=== PATIENT | male | born 1940 | race Two or more races ===

== ENCOUNTER 2020-07-15 11:19 | Inpatient (IN) | payer MEDICARE, OTHER ==
[~2020-07-15] VITALS: Ht 157.5 cm; Wt 91.2 kg
[2020-07-15] MEDS ORDERED: CARB1CAP5 PO (13:42)
[2020-07-15] MEDS ORDERED: MAGNESIUM HYDROXIDE 30 ML UDC PO PRN (14:00)
[2020-07-15] MEDS ORDERED: MAG HYDROX/AL HYDROX/SIMETH 30 ML UDC PO PRN (14:00)
[2020-07-15] MEDS ORDERED: ACETAMINOPHEN 325 MG TABLET PO PRN (14:00)
[2020-07-15] MEDS ORDERED: BLOOD SUGAR DIAGNOSTIC 1 EACH STRIP IN ONE (14:00)
[2020-07-15] MEDS ORDERED: SIMV-46 PO (14:26)
[2020-07-15] MEDS ORDERED: BUSP10TA35 PO (14:26)
[2020-07-15] MEDS ORDERED: ASPI-1169 PO (14:26)
[2020-07-15] MEDS ORDERED: MIRT30TA7 PO (14:26)
[2020-07-15 14:45] VITALS: BP 164/79
--- NOTE | 2020-07-15 15:07 | NUR ---
GPS ADMISSION NOTE: RECEIVED PATIENT FROM [facility]. PATIENT ARRIVED ON THIS UNIT AT 1330 VIA AMBULANCE . PATIENT ADMITTED ON A 5150 HOLD FOR DTO, DTS, GD. PER HOLD PATIENT AGITATED THIS MORNING PHYSICALLY VIOLENT WITH HIS AND MOTHER IN LOW. THROWING OBJECTS IN THE HOME. THIS IN SETTING OF DELUSIONAL [id number] PROCESS AND PARANOIA THE 5150 WAS REVIEWED AND THE DOCUMENTATION IN THE 5150 HOLD APPEARS TO REFLECT THE PRESENTATION OF THE PATIENT. UPON FACE TO FACE ASSESSMENT PATIENT IS CURRENTLY LYING IN BED AWAKE, HAS NO S/S OR COMPLAINTS OF PAIN. PATIENT IS DISPLAYING NO S/S OF APPARENT DISTRESS. PATIENT BREATHING IS UNLABORED WITH EQUAL RISE AND FALL OF THE CHEST. PATIENT IS ALERT AND ORIENTATED X 1, CONFUSED,DISORGANIZED, UNCOOPERATIVE, UNKEPT,RESTLESS, DELUSIONAL, DISHEVELED,ON ROOM AIR. PATIENT ASSISTED WITH TURING AND REPOSITIONING Q2HR AND PRN FOR COMFORT AND CIRCULATION. PATIENT IS UNDER THE PSYCHIATRIC CARE OF DR. SPANN AND THE MEDICAL CARE OF PATIENT BELONGINGS WERE INVENTORIED AND CHECKED FOR CONTRABAND. ALL CONTRABAND REMOVED AND STORED IN PATIENT HALLWAY LOCKER. SKIN ASSESSMENT DONE PICTURES PLACED IN THE CHART PATIENT ORIENTATED TO ROOM, FLOOR, AND STAFF WITH ALL QUESTIONS ANSWERED. CALL WONG ON . PATIENT BED SIDE RAILS ARE UP X 2 FOR SAFETY. PATIENT BED IS LOCKED, LOW AND I WILL CONTINUE TO MONITOR THIS PATIENT Q 15 MIN WITH THE HELP OF STAFF TO MAINTAIN SAFETY.
--- NOTE | 2020-07-15 15:28 | NUR ---
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 MADE AWARE TO CALL UNIT/PRIMARY RN FOR MORE INFORMATION OR UPDATE. CN MADE AWARE.
[2020-07-15 16:00] VITALS: BP 139/97
--- NOTE | 2020-07-15 16:58 | NUR ---
GPS RN NOTE: PATIENT REFUSED MRSA SWAB
[2020-07-15] MEDS: SIMVASTATIN 20 MG TABLET PO SCH (18:26)
[2020-07-15] MEDS: RYTARY PO SCH ×2 (18:49→21:27)
[2020-07-15 20:12] VITALS: BP 153/90
[2020-07-15] MEDS ORDERED: MIRTAZAPINE 15 MG TABLET PO SCH (22:00)
[2020-07-16] MEDS: TEMAZEPAM 7.5 MG CAPSULE PO PRN ×2 (00:46→22:18)
--- NOTE | 2020-07-16 00:46 | NUR ---
GPS-RN NOTE: INSOMNIA PATIENT UNABLE TO SLEEP. ADMINISTERED RESTORIL 7.5MG PO ORDERED. WILL CONTINUE TO MONITOR.
[2020-07-16] MEDS: LORAZEPAM 0.5 MG TABLET PO PRN (03:44)
--- NOTE | 2020-07-16 03:45 | NUR ---
NURSES NOTES: PATIENT NOTED TO BE RAMBLING AND TALKING TO SELF. OFFERED HIS ATIVAN 0.5M GPO PRN ORDER. WILL MONITOR EFFICACY OF MEDICATION ON PATIENT. WILL CONTINUE TO MONITOR MOOD AND BEHAVIOR.
[2020-07-16 05:18] VITALS: BP 141/88
[2020-07-16] MEDS: RYTARY PO SCH ×5 (06:14→21:14)
[2020-07-16 07:55] LABS: ALBUMIN 3.7 g/dL (3.4-5.0); BILIRUBIN,TOTAL 0.6 mg/dL (0.2-1.0); CALCIUM, SERUM 8.8 mg/dL (8.5-10.1); CREATININE 0.7 mg/dL (0.6-1.3); POTASSIUM 4.3 mmol/L (3.5-5.1); TOTAL PROTEIN, SERUM 7.6 g/dL (6.4-8.2)
[2020-07-16 07:58] LABS: THYROID STIMULATING HORMONE 2.285 uIU/mL (0.358-3.74)
[2020-07-16 08:00] VITALS: BP 141/78
[2020-07-16] MEDS: ASPIRIN 81 MG TAB.CHEW PO SCH (08:10)
--- NOTE | 2020-07-16 09:00 | NUR ---
RN NOTE- PT IN BED, GARBLED SPEECH DIFFICULT TO UNDERSTAND AND MAKE NEEDS KNOWN. TOOK ASA THIS MORNING SWALLOW EVAL TO BE COMPLETED AT LUNCH. MOVED TO JERO CHAIR. PT IN DAY ROOM WATCHING TV CALM NO BEHAVIORAL ISSUES AT PRESENT
--- NOTE | 2020-07-16 11:46 | NUR ---
FAMILY CONTACT: MAGDA contacted pts daughter Tatiana ([phone]) for collateral information and treatment/discharge planning. MAGDA was unable to leave a voicemail due to mailbox being full.
--- NOTE | 2020-07-16 11:56 | NUR ---
FAMILY CONTACT: MAGDA contacted pts Marla ([phone]) for collateral information, treatment and discharge planning. Per she states she has been pts caregiver for 12 years. She states pt has Parkinson's Disease and states that she believes the medication was too much for him that he became psychotic. She states pt began hallucinating and refusing ti take his medications and became aggressive at home. states that she wishes for pt to return home.
--- NOTE | 2020-07-16 12:12 | NUR ---
INITIAL DISCHARGE PLAN: Per Marla ([phone]) she wishes for pt to return home [address] [place] [address]. SW will help form a safe and proper discharge in collaboration with .
[2020-07-16 16:00] VITALS: BP 118/66
[2020-07-16] MEDS: SIMVASTATIN 20 MG TABLET PO SCH (17:00)
[2020-07-16] MEDS: DIVALPROEX SODIUM 125 MG CAP.SPRINK PO SCH (17:00)
--- NOTE | 2020-07-16 18:00 | NUR ---
RN NOTE- FAMILY CALLED TO SPEAK W PT. PT SET UP ON ZOOM CALL THOUGH IT DIDN'T PROVE EFFECTIVE. PT VERY CONFUSED BY COMPUTER SCREEN AND COULDN'T UNDERSTAND. FAMILY REALLY THINKS PT WOULD DO BETTER AT HOME W THEM. THEY WANT DR SPANN TO CALL THEM TOMORROW AND DISCUSS POSSIBLE DC TO FAMILY CARE. DR SPANN NOTIFIED. SHE STATED SHE WILL CALL FAMILY. WILL PASS ON TO NEXT SHIFT WELL.
[2020-07-16 20:04] VITALS: BP 98/63
[2020-07-16] MEDS: QUETIAPINE FUMARATE 25 MG TABLET PO SCH (21:15)
--- NOTE | 2020-07-16 22:18 | NUR ---
GPS RN NOTE: INSOMNIA PATIENT UNABLE TO SLEEP. ADMINISTERED RESTORIL 7.5 MG PO PRN ORDERED. WILL CONTINUE TO MONITOR FOR SAFETY AND BEHAVIOR.
[2020-07-17 08:00] VITALS: BP 157/94
[2020-07-17] MEDS: RYTARY PO SCH ×5 (08:17→21:08)
[2020-07-17] MEDS: DIVALPROEX SODIUM 125 MG CAP.SPRINK PO SCH ×2 (08:17→16:42)
[2020-07-17] MEDS: ASPIRIN 81 MG TAB.CHEW PO SCH (08:17)
[2020-07-17 16:00] VITALS: BP 136/91
[2020-07-17] MEDS: SIMVASTATIN 20 MG TABLET PO SCH (17:17)
[2020-07-17 21:00] VITALS: BP 158/83
[2020-07-17] MEDS: busPIRone 5 MG TABLET PO SCH (21:08)
[2020-07-17] MEDS: QUETIAPINE FUMARATE 25 MG TABLET PO SCH (21:08)
[2020-07-18] MEDS: RYTARY PO SCH ×5 (07:24→20:28)
[2020-07-18] MEDS: DIVALPROEX SODIUM 125 MG CAP.SPRINK PO SCH ×3 (07:31→17:00)
[2020-07-18] MEDS: busPIRone 5 MG TABLET PO SCH ×2 (07:31→18:23)
[2020-07-18] MEDS: ASPIRIN 81 MG TAB.CHEW PO SCH (07:32)
[2020-07-18 08:00] VITALS: BP 130/84
[2020-07-18 16:00] VITALS: BP 130/81
[2020-07-18] MEDS: SIMVASTATIN 20 MG TABLET PO SCH (17:06)
[2020-07-18 19:39] VITALS: BP 138/85
[2020-07-18] MEDS: QUETIAPINE FUMARATE 25 MG TABLET PO SCH (21:03)
--- NOTE | 2020-07-18 21:40 | NUR ---
GPS RN NOTES: REFUSED WEEKLY SKIN ASSESSMENT PICTURE PT EASILY AGITATED AND REFUSED WEEKLY SKIN ASSESSMENT PICTURE. PT ALLOWED TO TAKE PICTURE OF RIGHT HAND, BUT REFUSED BILATERAL FEET PICTURE. EXPLAIN RISK AND BENEFITS PT STILL REFUSED X3. Addendum: 07/18/20 at 2241 by MYRIAM GAN RN PT REFUSED TO BE TOUCHED AND REPOSITIONED AT TIMES. PT REFUSED BODY ASSESSMENT.
[2020-07-18] MEDS: LORAZEPAM 0.5 MG TABLET PO PRN (22:16)
--- NOTE | 2020-07-18 22:23 | NUR ---
GPS RN NOTES: ANXIOUS UPON DOING ROUNDS PT YELLING IN HIS ROOM AND TRYING TO GET OUT OF BED. ENCOURAGE PT TO EXPRESS THOUGHTS AND FEELINGS. PT RAMBLING ,ANXIOUS, AND AGITATED. PLACED PT IN JERO CHAIR IN THE DAY ROOM WITH STAFF BY HIS SIDE. EXPLAIN TO PT ABOUT SAFETY AND FALL. VITALS CHECKED WNL. OFFERED PT ATIVAN 0.5MG PO PRN ORDERED. PT AGREED AND TOLERATED MEDICATION WELL. CONTINUE TO MONITOR.
[2020-07-18 22:27] VITALS: BP 143/73
--- NOTE | 2020-07-19 06:21 | NUR ---
GPS RN NOTES: NOTED SACRAL REDNESS UPON CHAINING DIAPER. PT REFUSED PICTURE TO BE TAKEN. PT INCREASED AGITATION AND STARTING YELLING. EXPLAIN RISKS AND BENEFITS. PT STILL REFUSED X3. ORDERED WOUND CONSULT FOR TODAY AND Z GUARD. WILL ENDORSE TO DAY SHIFT TO FOLLOW UP AND CONTINUE TO CHANGE POSITION WHEN PT IS IN BED. CONTINUE TO MONITOR.
[2020-07-19] MEDS ORDERED: Z GUARD REMEDY 4 OZ OINT TP PRN (06:30)
[2020-07-19] MEDS: RYTARY PO SCH ×5 (07:33→21:00)
[2020-07-19 08:00] VITALS: BP 163/66
[2020-07-19] MEDS: ASPIRIN 81 MG TAB.CHEW PO SCH ×2 (08:30→08:33)
[2020-07-19] MEDS: DIVALPROEX SODIUM 125 MG CAP.SPRINK PO SCH ×4 (08:30→16:53)
[2020-07-19] MEDS: busPIRone 5 MG TABLET PO SCH ×4 (08:30→16:53)
--- NOTE | 2020-07-19 09:00 | NUR ---
RN NOTE-PT ALERT ORIENTED TO SELF CONFUSED GARBLED SPEECH REFUSING MORNING RX PO INTAKE FAIR UNABLE TO COMMUNICATE THIS MORNING DUE TO CONFUSED STATE NO BEHAVIORAL ISSUES CALM
[2020-07-19] MEDS ORDERED: CLONIDINE HCL 0.1 MG TABLET PO PRN (11:00)
[2020-07-19 16:00] VITALS: BP 102/69
--- NOTE | 2020-07-19 16:59 | NUR ---
RN NOTE- PT REFUSING RX MOST OF DAY. NUMEROUS ATTEMPTS TO ADMINISTER RX HAVE FAILED.
[2020-07-19] MEDS: ENSURE ENLIVE CHOC 237 ML CAN PO SCH (17:59)
[2020-07-19] MEDS: SIMVASTATIN 20 MG TABLET PO SCH (17:59)
[2020-07-19 19:46] VITALS: BP 151/83
--- NOTE | 2020-07-19 21:03 | NUR ---
GPS RN NOTES: REFUSED 2100 MED PT REFUSED 2100 MEDICATION DUE. RYTARY MEDICATION. PT YELLING AND SHAKING HEAD. INCREASED AGITATION. EXPLAIN RISKS AND BENEFITS. PT STILL REFUSED X3. CONTINUE TO MONITOR.
[2020-07-19] MEDS: QUETIAPINE FUMARATE 25 MG TABLET PO SCH (22:00)
--- NOTE | 2020-07-19 22:01 | NUR ---
GPS RN NOTES: REFUSED 2200 MEDICATION PT REFUSED 2200 SEROQUEL 12.5MG DUE. PT EASY AGITATED AND STATED, "NO!NO!" EXPLAIN RISKS AND BENEFITS. PT STILL REFUSED X3. CONTINUE TO MONITOR.
--- NOTE | 2020-07-20 06:13 | NUR ---
GPS RN NOTES: REFUSED LABS PT REFUSED TO DRAW LABS THIS MORNING. PT INCREASED AGITATION AND ANXIETY WHEN ASKED. PT FRUSTRATED AND MUMBLING. EXPLAIN RISKS AND BENEFITS. PT STILL REFUSED X3. CONTINUE TO MONITOR. WILL TRY AGAIN LATER IN THE DAY. WILL ENDORSE TO DAY SHIFT TO FOLLOW UP. CONTINUE TO MONITOR.
[2020-07-20] MEDS: ENSURE ENLIVE CHOC 237 ML CAN PO SCH ×2 (07:47→11:53)
[2020-07-20] MEDS: RYTARY PO SCH ×2 (07:48→11:53)
[2020-07-20 08:00] VITALS: BP 146/88
[2020-07-20] MEDS: busPIRone 5 MG TABLET PO SCH ×2 (08:01→13:03)
[2020-07-20] MEDS: ASPIRIN 81 MG TAB.CHEW PO SCH (08:01)
[2020-07-20] MEDS: DIVALPROEX SODIUM 125 MG CAP.SPRINK PO SCH ×2 (08:01→13:03)
--- NOTE | 2020-07-20 09:00 | NUR ---
RN NOTE-PT ALERT ORIENTED TO SELF ONLY, CONFUSED, GARBLED SPEECH, NO BEHAVIORAL ISSUES NOTED AT PRESENT, REORIENTATION PRN, MED COMPLIANT, PO INTAKE FAIR, ALL NEEDS ATTENDED, MONITOR FOR SAFETY AND ASSIST PRN
--- NOTE | 2020-07-20 10:06 | NUR ---
WOUND CARE CONSULT: PT PRESENTS WITH BLANCHABLE REDNESS TO SACRUM AND BUTTOCKS. CURRENT CECIL SCORE IS 16. RECOMMENDATIONS MADE FOR SKIN PROTECTION AND DISCUSSED WITH NURSING STAFF. WILL SEE PRN. RICHARD IN AGREEMENT WITH PLAN OF CARE. Addendum: 07/20/20 at 1007 by MICHEL JANG WNDNU Amended: Links added.
[2020-07-20 12:32] LABS: BASOPHILS # (AUTO) 0.1 /CMM (0.0-0.2); BASOPHILS % (AUTO) 0.9 % (0.0-2.0); EOSINOPHILS % (AUTO) 1.9 % (0.0-6.0); HEMATOCRIT 52 % (39-51); HEMOGLOBIN 16.6 g/dL (13.5-17.5); LYMPHOCYTES # (AUTO) 1.2 /CMM (0.8-4.8); LYMPHOCYTES % (AUTO) 14.6 % (20.0-44.0); MEAN CORPUSCULAR HGB CONC 32 g/dl (31.0-36.0); MEAN CORPUSCULAR VOLUME 102 fL (80-96); MONOCYTES # (AUTO) 0.7 /CMM (0.1-1.30); MONOCYTES % (AUTO) 9.2 % (2.0-12.0); NEUTROPHILS # (AUTO) 5.8 /CMM (1.8-8.9); NEUTROPHILS % (AUTO) 73.4 % (43.0-81.0); RED BLOOD CELL COUNT(AUTO) 5.06 MIL/uL (4.5-6.0)
[2020-07-20 12:35] LABS: PLATELET COUNT (AUTO) 86 /CMM (150-450)
[2020-07-20 12:56] LABS: ALBUMIN 3.3 g/dL (3.4-5.0); BILIRUBIN,TOTAL 0.6 mg/dL (0.2-1.0); CALCIUM, SERUM 8.9 mg/dL (8.5-10.1); CREATININE 0.7 mg/dL (0.6-1.3); POTASSIUM 4.2 mmol/L (3.5-5.1); TOTAL PROTEIN, SERUM 7.5 g/dL (6.4-8.2)
--- NOTE | 2020-07-20 13:28 | NUR ---
MAGDA Family Contact: SW received a call from patient's daughter, Tatiana ([phone]) who expressed her concerns regarding the patient being in the hospital. Tatiana stated she wants to apple picking supervisor the patient today and take him home, as she and her family "don't believe the patient is making progress in the hospital". This contract writer discussed this concern with Dr. Ferguson who stated that the patient is more stable and can return home today should the family want to pick him up. This contract writer spoke with Tatiana again who was thrilled about this news and stated they will apple picking supervisor the patient today around 3-4PM.
--- NOTE | 2020-07-20 13:30 | NUR ---
DISCHARGE NOTE: Patient will be discharged today back home [address] [address] ([phone]). Patients daughter, Tatiana ([phone]) will be providing transportation today ay 3:00PM back home. Patients , Marla ([phone]) is made aware and is agreeable with discharge plans. Patient is aware and agreeable with discharge plans. Patient denies suicidal or homicidal ideation. Patient presents with euthymic mood and appropriate affect at the time of discharge. Patient will be following up with his psychiatrist Dr. Patten [address] [facility] [address] [place] [address] ([phone]) via telehealth on Sunday07/23/2020 at 9:30AM. Patient will be following up with his primary care physician Dr. Quispe [address] [facility] [address] [place] [address] ([phone]). Patient is also referred to [facility], [facility]. ( ) Elena Carr and will be admitted upon arrival home today. Patient will have medication management, shower assistance, physical therapy, and nurse visits several times a week.
--- NOTE | 2020-07-20 14:45 | NUR ---
PROTOTYPE FABRICATOR NOTE: PT DISCHARGED HOME WITH FAMILY IN STABLE CONDITION. PT A+OX1-2, NEEDS ASSISTANCE WITH AMBULATION AND ADLS. PT COMPLIANT THIS SHIFT WITH PO MEDICATIONS CRUSHED. VSS. AGITATION NOTED WHEN ASSISTED WITH [facility] AND LINEN CHANGE. MEDICATION RECONCILIATION COMPLETED BY DR. GERMAN AND DR. ESCOBAR. PT UNABLE TO INDIRA DISCHARGE PAPER WORK DUE TO CONFUSION. EXIT CARE INSTRUCTIONS PROVIDED TO PT'S DAUGHTER ADGMAR. PT TO FOLLOW UP WITH OUTSIDE PSYCHIATRIST WITHIN 5 DAYS OF DISCHARGE. PT DENIES CURRENT SI/HI. HOME HEALTH ORDERED BY DR. ESCOBAR AND SCHEDULED BY SOCIAL WORK. PT LEFT THE UNIT VIA WHEELCHAIR IN STABLE CONDITION AT 1445
== END 2020-07-20 14:45 | disposition home or self-care (01) | DRG 885 ==
LOC: EDBD 11:19 → GPS 11:19
PROVIDERS: ADMIT Psychiatry & Neurology Psychosomatic Medicine; ATTEND Student in an Organized Health Care Education/Training Program
DX: F25.0 Schizoaffective disorder, bipolar type (principal); F23 Brief psychotic disorder; F39 Unspecified mood [affective] disorder; F09 Unspecified mental disorder due to known physiological condition; F41.9 Anxiety disorder, unspecified; I10 Essential (primary) hypertension; E78.5 Hyperlipidemia, unspecified; G20 Parkinson's disease; N40.0 Benign prostatic hyperplasia without lower urinary tract symptoms
CPT/HCPCS: 36415; 80053-TC; 80061-TC; 80164-TC; 82962-TC; 84443-TC; 85025-TC; 92611-TC; 97116-TC; 97530-TC